=== PATIENT | female | born 1940 | race Caucasian/White ===

== ENCOUNTER 2020-10-01 20:48 | Emergency (ER) | payer OTHER ==
[~2020-10-01] VITALS: Ht 167.6 cm; Wt 63.5 kg
[2020-10-01 21:01] VITALS: BP_SYST 205
[2020-10-01] MEDS ORDERED: NACL 0.9% 1,000 ML IV ONE (22:15)
[2020-10-01 22:29] LABS: BILIRUBIN,URINE NEGATIVE (NEGATIVE); BLOOD, URINE NEGATIVE (NEGATIVE); GLUCOSE,URINE NEGATIVE (NEGATIVE); KETONES,URINE NEGATIVE (NEGATIVE); LEUKOCYTE ESTERASE ,URINE 2+ (NEGATIVE); NITRITE, URINE NEGATIVE (NEGATIVE); PH,URINE 7.5 (5.0-8.0); PROTEIN URINE NEGATIVE (NEGATIVE); UROBILINOGEN,URINE 0.2 (0.2-1.0)
[2020-10-01] MEDS ORDERED: ENALAPRILAT DIHYDRATE 1.25 MG/ML VIAL IVP ONE (22:30)
[2020-10-01 22:36] LABS: CLARITY/URINE CLEAR (CLEAR); COLOR,URINE STRAW (YELLOW)
[2020-10-01 22:40] LABS: BACTERIA,URINE FEW /HPF (None Seen); MUCUS,URINE None Seen /LPF (None Seen); RBC,URINE 0-3 /HPF (0-3)
[2020-10-01 22:44] LABS: BASOPHILS % (AUTO) 0.6 % (0.0-2.0); EOSINOPHILS # (AUTO) 0.1 K/uL (0.0-0.4); EOSINOPHILS % (AUTO) 1.4 % (0.0-4.0); HEMATOCRIT 38.8 % (36-48); HEMOGLOBIN 13.3 g/dL (12.0-16.0); LYMPHOCYTES # (AUTO) 1.1 K/uL (1.0-5.5); LYMPHOCYTES % (AUTO) 14.9 % (20.5-51.5); MEAN CORPUSCULAR HEMOGLOBIN 34 pg (27-31); MEAN CORPUSCULAR HGB CONC 34 % (32-36); MEAN CORPUSCULAR VOLUME 99 fL (79.0-98.0); MONOCYTES # (AUTO) 0.5 K/uL (0.0-1.0); MONOCYTES % (AUTO) 6.4 % (1.7-9.3); NEUTROPHILS # (AUTO) 5.8 K/uL (1.8-7.7); NEUTROPHILS % (AUTO) 76.7 % (40.0-70.0); PLATELET COUNT (AUTO) 218 K/uL (130-430); RED BLOOD CELL COUNT(AUTO) 3.92 MIL/uL (4.2-6.2); RED CELL DISTRIBUTION WIDTH 13.2 % (9.0-15.0); WHITE BLOOD COUNT (AUTO) 7.6 K/uL (4.8-10.8)
[2020-10-01 22:48] LABS: ANION GAP 12 (5-15); CALCIUM 9.6 mg/dL (8.4-11.0); CHLORIDE 105 mmol/L (98-107); CREATININE 1.02 mg/dL (0.55-1.30); GLUCOSE 124 mg/dL (70-99); POTASSIUM 3.8 mmol/L (3.5-5.1); SODIUM SERUM 141 mmol/L (136-145); UREA NITROGEN, BLOOD 11 mg/dL (8-21)
[2020-10-01 22:54] LABS: ALANINE AMINOTRANSFERASE 31 U/L (12-78); ASPARTATE AMINOTRANSFERASE 21 U/L (10-37); TOTAL BILIRUBIN 0.7 mg/dL (0.0-1.0)
[2020-10-01] MEDS ORDERED: CIPR500T5 PO ×2 (23:14→23:36)
[2020-10-01] MEDS ORDERED: MECL-103 PO ×2 (23:14→23:36)
[2020-10-01 23:26] VITALS: BP_SYST 179
== END 2020-10-01 23:26 | disposition home or self-care (01) ==
LOC: SED 20:48
DX: I10 Essential (primary) hypertension (principal); N39.0 Urinary tract infection, site not specified
CPT/HCPCS: 36415; 70450-TC; 76376; 80053; 81000; 85025; 87086; 96374; 99284

== ENCOUNTER 2021-07-11 08:44 | Emergency (ER) | payer OTHER ==
[~2021-07-11] VITALS: Ht 167.6 cm; Wt 61.2 kg
[~2021-07-11 08:44] MED LIST: CIPR500T5 PO; MECL-103 PO
[2021-07-11 08:55] VITALS: BP_SYST 151
--- NOTE | 2021-07-11 09:05 | NUR ---
PT TRIAGED. MD AT BEDSIDE
[2021-07-11] MEDS ORDERED: MECLIZINE HCL 25 MG TABLET (ANITVERT) PO ONE (09:15)
[2021-07-11] MEDS ORDERED: NACL 0.9% 1,000 ML IV ONE (09:15)
--- NOTE | 2021-07-11 10:08 | NUR ---
PIV PLACED BLOOD AND URINE TO LAB, AMBULATED WITH STEADY GAIT TO BR WITH ASST
[2021-07-11 10:18] LABS: BILIRUBIN,URINE NEGATIVE (NEGATIVE); BLOOD, URINE NEGATIVE (NEGATIVE); CLARITY/URINE CLEAR (CLEAR); COLOR,URINE YELLOW (YELLOW); GLUCOSE,URINE NEGATIVE (NEGATIVE); KETONES,URINE NEGATIVE (NEGATIVE); LEUKOCYTE ESTERASE ,URINE TRACE (NEGATIVE); NITRITE, URINE NEGATIVE (NEGATIVE); PROTEIN URINE NEGATIVE (NEGATIVE); UROBILINOGEN,URINE 0.2 (0.2-1.0)
[2021-07-11 10:20] LABS: BASOPHILS % (AUTO) 0.5 % (0.0-2.0); EOSINOPHILS % (AUTO) 0.3 % (0.0-4.0); HEMATOCRIT 42.8 % (36-48); HEMOGLOBIN 14.2 g/dL (12.0-16.0); LYMPHOCYTES # (AUTO) 0.9 K/uL (1.0-5.5); MEAN CORPUSCULAR HEMOGLOBIN 31 pg (27-31); MEAN CORPUSCULAR HGB CONC 33 % (32-36); MEAN CORPUSCULAR VOLUME 93 fL (79.0-98.0); MONOCYTES # (AUTO) 0.3 K/uL (0.0-1.0); MONOCYTES % (AUTO) 4.1 % (1.7-9.3); NEUTROPHILS # (AUTO) 5.9 K/uL (1.8-7.7); NEUTROPHILS % (AUTO) 82.1 % (40.0-70.0); PLATELET COUNT (AUTO) 302 K/uL (130-430); RED BLOOD CELL COUNT(AUTO) 4.59 MIL/uL (4.2-6.2); RED CELL DISTRIBUTION WIDTH 13.1 % (9.0-15.0); WHITE BLOOD COUNT (AUTO) 7.2 K/uL (4.8-10.8)
[2021-07-11 10:36] LABS: BACTERIA,URINE RARE /HPF (None Seen); MUCUS,URINE 1+ /LPF (None Seen); RBC,URINE 0-3 /HPF (0-3); WBC,URINE 0-3 /HPF (0-3)
[2021-07-11 10:37] LABS: ANION GAP 10 (5-15); CHLORIDE 101 mmol/L (98-107); CREATININE 0.81 mg/dL (0.55-1.30); GLUCOSE 118 mg/dL (70-99); SODIUM SERUM 137 mmol/L (136-145); UREA NITROGEN, BLOOD 14 mg/dL (8-21)
[2021-07-11 10:51] LABS: ALANINE AMINOTRANSFERASE 21 U/L (12-78); ALBUMIN 4.2 g/dL (3.4-4.8); ASPARTATE AMINOTRANSFERASE 14 U/L (10-37); TOTAL BILIRUBIN 0.2 mg/dL (0.0-1.0)
--- NOTE | 2021-07-11 11:01 | NUR ---
AMBULATED PATIENT WITHOUT ASST WITHOUT COMPLAINTS
[2021-07-11] MEDS ORDERED: KETOROLAC TROMETHAMINE 30 MG VIAL IVP ONE (11:30)
--- NOTE | 2021-07-11 11:34 | NUR ---
MEDICATED FOR PAIN TO CT SCAN
[2021-07-11] MEDS ORDERED: MAGNESIUM CITRATE 300 ML ORAL SOLUTION PO ONE (13:00)
[2021-07-11] MEDS ORDERED: BISACODYL 10 MG/SUPPOSITORY RC ONE (13:00)
[2021-07-11] MEDS ORDERED: BISA10SU61 RC (13:22)
[2021-07-11] MEDS ORDERED: POLY17PO4 PO (13:22)
[2021-07-11] MEDS ORDERED: DOCU-144 PO (13:22)
[2021-07-11] MEDS ORDERED: MINERAL OIL 133 ML ENEMA RC ONE (14:00)
[2021-07-11 14:26] VITALS: BP_SYST 139
--- NOTE | 2021-07-11 14:27 | NUR ---
Patient given written and verbal discharge instructions and verbalizes understanding. KIM PARDO MD discussed with patient the results and treatment provided. Patient in stable condition. ID arm band removed. IV catheter removed intact and dressing applied, no active bleeding. Rx of DUCOLAX, MIRALAX given. Patient educated on pain management and to follow up with PMD. Pain Scale 0. Opportunity for questions provided and answered. Medication side effect fact sheet provided.
== END 2021-07-11 14:27 | disposition home or self-care (01) ==
LOC: SED 08:44
DX: R10.2 Pelvic and perineal pain (principal); R35.0 Frequency of micturition; I10 Essential (primary) hypertension; Z79.899 Other long term (current) drug therapy
CPT/HCPCS: 36415; 74176; 76376; 80053; 81000; 83605; 85025; 87040; 87086; 96361; 96374; 99284; J1885; J7030; J8597

== ENCOUNTER 2021-07-24 20:08 | Inpatient (IN) | payer OTHER, SELFPAY ==
[~2021-07-24] VITALS: Ht 160 cm; Wt 61.2 kg
[~2021-07-24 20:08] MED LIST changes: +BISA10SU61 RC; +DOCU-144 PO; +POLY17PO4 PO
[2021-07-24 20:20] VITALS: BP_SYST 141
--- NOTE | 2021-07-24 20:20 | NUR ---
Patient to ER bed 2 for evaluation. Side rails up. Report given to RONY Luo.
--- NOTE | 2021-07-24 20:25 | NUR ---
PATIENT VERBALIZED COMING IN FOR ABDOMINAL PAIN, DIARRHEA. PATIENT STATED TWO WEEKS AGO SHE WAS HERE FOR CONSTIPATION AND SHE HAS HISTORY OF DIVERTICULITIS. DR PARDO INFORMED. DR PARDO VERBALIZED UNDERSTANDING.
[2021-07-24] MEDS ORDERED: MAG HYDROX/AL HYDROX/SIMETH 30 ML, DICYCLOMINE HCL 20 MG, LIDOCAINE VISCOUS 2% 15ML (PO... PO ONE ×3 (21:30)
[2021-07-24] MEDS ORDERED: NACL 0.9% 1,000 ML IV ONE (21:30)
[2021-07-24] MEDS ORDERED: ONDANSETRON HCL 4 MG/2 ML VIAL IVP ONE ×2 (21:30→21:45)
[2021-07-24 22:05] LABS: BASOPHILS % (AUTO) 0.2 % (0.0-2.0); EOSINOPHILS # (AUTO) 0.1 K/uL (0.0-0.4); EOSINOPHILS % (AUTO) 0.5 % (0.0-4.0); HEMATOCRIT 38.8 % (36-48); HEMOGLOBIN 13.3 g/dL (12.0-16.0); LYMPHOCYTES # (AUTO) 0.5 K/uL (1.0-5.5); LYMPHOCYTES % (AUTO) 4.7 % (20.5-51.5); MEAN CORPUSCULAR HEMOGLOBIN 31 pg (27-31); MEAN CORPUSCULAR HGB CONC 34 % (32-36); MEAN CORPUSCULAR VOLUME 91 fL (79.0-98.0); MONOCYTES # (AUTO) 0.6 K/uL (0.0-1.0); MONOCYTES % (AUTO) 5.7 % (1.7-9.3); NEUTROPHILS # (AUTO) 9.5 K/uL (1.8-7.7); NEUTROPHILS % (AUTO) 88.9 % (40.0-70.0); PLATELET COUNT (AUTO) 250 K/uL (130-430); RED BLOOD CELL COUNT(AUTO) 4.25 MIL/uL (4.2-6.2); WHITE BLOOD COUNT (AUTO) 10.7 K/uL (4.8-10.8)
[2021-07-24 22:24] LABS: ANION GAP 10 (5-15); CALCIUM 9.1 mg/dL (8.4-11.0); CHLORIDE 100 mmol/L (98-107); CREATININE 0.99 mg/dL (0.55-1.30); GLUCOSE 172 mg/dL (70-99); POTASSIUM 3.6 mmol/L (3.5-5.1); SODIUM SERUM 133 mmol/L (136-145); UREA NITROGEN, BLOOD 18 mg/dL (8-21)
[2021-07-24 22:28] LABS: ALANINE AMINOTRANSFERASE 22 U/L (12-78); ALBUMIN 3.8 g/dL (3.4-4.8); ASPARTATE AMINOTRANSFERASE 17 U/L (10-37); LIPASE 238 U/L (73-393); TOTAL BILIRUBIN 0.2 mg/dL (0.0-1.0)
--- NOTE | 2021-07-24 22:40 | NUR ---
PATIENT REFUSING ALL MEDICATION AND IV LINE. PATIENT STATES SHE DOES NOT WANT TO BE " DOPED UP". PATIENT EDUCATED ON MEDICATION AND SIDE EFFECTS. PATIENT STILL REFUSING. MD NOTIFIED
--- NOTE | 2021-07-25 00:26 | NUR ---
Assumed care of patient at this time. (Assignment changed.)
[2021-07-25 01:08] LABS: BILIRUBIN,URINE NEGATIVE (NEGATIVE); CLARITY/URINE CLEAR (CLEAR); COLOR,URINE YELLOW (YELLOW); GLUCOSE,URINE NEGATIVE (NEGATIVE); KETONES,URINE NEGATIVE (NEGATIVE); LEUKOCYTE ESTERASE ,URINE 2+ (NEGATIVE); NITRITE, URINE NEGATIVE (NEGATIVE); PROTEIN URINE NEGATIVE (NEGATIVE); UROBILINOGEN,URINE 0.2 (0.2-1.0)
[2021-07-25 01:20] LABS: BLOOD, URINE TRACE (NEGATIVE)
[2021-07-25] MEDS ORDERED: NACL 0.9% 1,000 ML IV ONE (01:30)
--- NOTE | 2021-07-25 01:44 | NUR ---
Covid nasal swab sent to lab at this time.
[2021-07-25] MEDS ORDERED: cefTRIAXone 1 GM IVPB PREMIX 50 ML IV ONE (02:00)
[2021-07-25 02:02] LABS: BACTERIA,URINE None Seen /HPF (None Seen)
[2021-07-25 02:03] LABS: MUCUS,URINE None Seen /LPF (None Seen); TRICHOMONAS,URINE None Seen /HPF (None Seen); YEAST,URINE Few /HPF (None Seen)
[2021-07-25] MEDS ORDERED: ONDANSETRON HCL 4 MG/2 ML VIAL IVP PRN (02:30)
[2021-07-25] MEDS ORDERED: ALBUTEROL SULFATE 0.083% 2.5 MG/3 ML VIAL.NEB INH PRN (02:30)
--- NOTE | 2021-07-25 02:50 | NUR ---
Report given back to RONY Luo.
--- NOTE | 2021-07-25 02:55 | NUR ---
Admit bed requested Patient will be admitted to care of Admitted to Telemetry unit. Diagnosis Chest pain, Abdominal pain Inpatient (Yes or No) yes Observation (Yes or No) no Orientation concerns or request close to nursing station (Yes or No) yes Covid Status pending On vent or bipap no Isolation requirements no Needs a sitter no From Home (Yes or if No enter name of facility) yes Requires Dialysis (Yes or No) no Med Rec Completed (Yes of No) yes
--- NOTE | 2021-07-25 03:03 | NUR ---
Assumed care of patient at this time. (Assignment changed.) Report received from Luke URIBE.
--- NOTE | 2021-07-25 04:03 | NUR ---
Report given to Tele Nurse Gorge URIBE. Tele Nurse Gorge URIBE verbalized understanding, no further questions. Patient resting quietly. No acute distress noted. Vital signs within normal range. Bed in low and locked position, call light within reach of patient. Patient A/Ox4, skin intact, IV patent and infusing NS, no s/s of distress or c/o pain.
[2021-07-25 04:05] VITALS: BP_SYST 137
--- NOTE | 2021-07-25 04:10 | NUR ---
RECEIVED BEDSIDE REPORT. PT AOX4 ABLE TO MAKE NEEDS KNOWN. RR EVEN AND UNLABORED ON RA. PULSES PRESENT. PT ABLE TO AMBULATE WITH ASSIST. PT CO ABD DISCOMFORT. PT EDUCATED TO USE CALL LIGHT IF SHE NEEDS TO USE RESTROOM. BED ALARM ON. CALL LIGHT WITHIN REACH. HOB ELEVATED. WILL CONTINUE TO MONITOR.
[2021-07-25 04:19] VITALS: BP_SYST 140
--- NOTE | 2021-07-25 04:42 | NUR ---
CONSULTATION PAGED/CALLED Reason for Consultation: CHEST PAIN Person Who was Notified: ROSY Consulting Physician: PETE Hole Puncher Strap Specialty: Ordering Physician: LIZBETH
--- NOTE | 2021-07-25 06:40 | NUR ---
PT C/O 10/10 LEG PAIN THAT IS RADIATING UP THE R LEG IN THE GROIN AREA/ABD AREA. MD WILL BE PAGED
--- NOTE | 2021-07-25 06:48 | NUR ---
ATTENDING MD DR CHA WAS CALLED, RE: SEVERE LEG PAIN. SPOKE TO CELINA.
--- NOTE | 2021-07-25 07:05 | NUR ---
RECEIVED ORDER FOR ONE TIME DOSE OF MORPHINE FOR PT 02/09. PT STATED SHE DID NOT WANT THE MEDICATION RIGHT NOW. ENDORSED CARE TO DAY RN
[2021-07-25] MEDS ORDERED: NALOXONE HCL 0.4 MG/ML AMP (NARCAN) IVP PRN (07:15)
--- NOTE | 2021-07-25 07:15 | NUR ---
OPENING NOTE: REPORT RC'VD FROM OUTGOING NOC RN, PATIENT IN NO ACUTE DISTRESS AND OR DISCOMFORT. BED LOW AND LOCKED FOR SAFETY.
[2021-07-25 07:21] LABS: BASOPHILS % (AUTO) 0.3 % (0.0-2.0); EOSINOPHILS % (AUTO) 0.6 % (0.0-4.0); HEMATOCRIT 38.5 % (36-48); HEMOGLOBIN 13.1 g/dL (12.0-16.0); LYMPHOCYTES # (AUTO) 0.9 K/uL (1.0-5.5); LYMPHOCYTES % (AUTO) 13.3 % (20.5-51.5); MEAN CORPUSCULAR HEMOGLOBIN 31 pg (27-31); MEAN CORPUSCULAR HGB CONC 34 % (32-36); MEAN CORPUSCULAR VOLUME 91 fL (79.0-98.0); MONOCYTES # (AUTO) 0.4 K/uL (0.0-1.0); MONOCYTES % (AUTO) 6.4 % (1.7-9.3); NEUTROPHILS # (AUTO) 5.4 K/uL (1.8-7.7); NEUTROPHILS % (AUTO) 79.4 % (40.0-70.0); PLATELET COUNT (AUTO) 255 K/uL (130-430); RED BLOOD CELL COUNT(AUTO) 4.26 MIL/uL (4.2-6.2); RED CELL DISTRIBUTION WIDTH 13.1 % (9.0-15.0); WHITE BLOOD COUNT (AUTO) 6.7 K/uL (4.8-10.8)
[2021-07-25 07:47] LABS: ALANINE AMINOTRANSFERASE 20 U/L (12-78); ALBUMIN 3.7 g/dL (3.4-4.8); ANION GAP 13 (5-15); ASPARTATE AMINOTRANSFERASE 15 U/L (10-37); CHLORIDE 105 mmol/L (98-107); GLUCOSE 113 mg/dL (70-99); POTASSIUM 3.1 mmol/L (3.5-5.1); SODIUM SERUM 137 mmol/L (136-145); TOTAL BILIRUBIN 0.2 mg/dL (0.0-1.0); UREA NITROGEN, BLOOD 12 mg/dL (8-21)
--- NOTE | 2021-07-25 07:55 | NUR ---
DR. TRIPP MAKING ROUNDS, TO REVIEW CHART AND PLACE ORDERS.
[2021-07-25 08:00] VITALS: BP_SYST 138
[2021-07-25] MEDS ORDERED: MORPHINE 2 MG/ML INJ. SYRINGE IVP ONE (08:00)
--- NOTE | 2021-07-25 08:19 | NUR ---
DR. TRIPP MADE AWARE OF K+ RESULT WILL PLACE ORDER FOR REPLACEMENT.
[2021-07-25] MEDS: LOSARTAN POTASSIUM 50 MG TABLET (COZAAR) PO SCH (08:26)
[2021-07-25] MEDS: amLODIPine BESYLATE 5 MG TABLET PO SCH (08:27)
--- NOTE | 2021-07-25 08:27 | NUR ---
DR. TORO MAKING ROUNDS, VERBAL BEDSIDE REPORT GIVEN.
--- NOTE | 2021-07-25 08:28 | NUR ---
MANAGER BASKETBALL AT BEDSIDE COMPLETING EXAM.
[2021-07-25] MEDS ORDERED: VALSARTAN 160 MG TABLET (DIOVAN) PO SCH ×2 (09:00)
--- NOTE | 2021-07-25 09:06 | NUR ---
MORPHINE GIVEN FOR PAIN 11/09
--- NOTE | 2021-07-25 11:07 | NUR ---
NEW 20G PIV PLACED TO LEFT AC, FLASH NOTED WITH GOOD BLOOD RETURN AND FLUSHES WELL.
[2021-07-25 12:00] VITALS: BP_SYST 131
[2021-07-25 16:00] VITALS: BP_SYST 129
[2021-07-26 00:11] VITALS: BP_SYST 132
--- NOTE | 2021-07-26 07:54 | NUR ---
OPENING NOTES: PATIENT RESTING IN BED. BREATHING EVEN AND NON LABORED TO ROOM AIR. FALL, SAFETY AND ASPIRATION MEASURES REINFORCED. CALL LIGHT WITHIN REACH.
[2021-07-26] MEDS: amLODIPine BESYLATE 5 MG TABLET PO SCH (08:11)
[2021-07-26] MEDS: LOSARTAN POTASSIUM 50 MG TABLET (COZAAR) PO SCH (08:12)
[2021-07-26] MEDS: ACETAMINOPHEN 325 MG TABLET PO PRN ×2 (08:13→21:24)
[2021-07-26 08:15] VITALS: BP_SYST 127
[2021-07-26 11:31] VITALS: BP_SYST 116
--- NOTE | 2021-07-26 13:00 | NUR ---
RN NOTES: PATIENT RESTING IN BED. NO S/S OF ACUTE DISTRESS NOTED. DR. MUHAMMAD MADE ROUNDS.
[2021-07-26] MEDS ORDERED: PANTOPRAZOLE SODIUM 40 MG TAB PO ONE (13:15)
[2021-07-26 15:32] VITALS: BP_SYST 117
--- NOTE | 2021-07-26 17:45 | NUR ---
RN NOTES: ASSISTED PATIENT TO BEDSIDE COMMODE. NO S/S OF ACUTE DISTRESS NOTED. CALL LIGHT WITHIN REACH.
--- NOTE | 2021-07-26 18:04 | NUR ---
CONSULTATION PAGED/CALLED Reason for Consultation: [] DIVERTICULOSIS, HEPATIC CYST, ABD PAIN Person Who was Notified: [] OSWALD Consulting Physician: [] DR Dalton DUMONT Analytical Data Scientist Specialty: [] GI Ordering Physician: [] DR Anita MUHAMMAD/DR TORO
--- NOTE | 2021-07-26 18:39 | NUR ---
CLOSING NOTES: PATIENT EATING DINNER. HOB ELEVATED. NO S/S OF ACUTE DISTRESS NOTED. BED LOCKED, ALARM ON AND IN LOWEST POSITION. FALL, SAFETY AND ASPIRATION MEASURES PROVIDED. CALL LIGHT WITHIN REACH. WILL CONTINUE MONITOR UNTIL ENDORSE TO MESSENGER OFFICE RN.
[2021-07-27 00:46] VITALS: BP_SYST 119
--- NOTE | 2021-07-27 07:19 | NUR ---
CLOSING NOTE PT IS IN BED, NO APPARENT DISTRESS NOTED AT THIS TIME. BED IS LOWEST POSITION WITH FALL AND SAFETY PRECAUTIONS IN PLACE. CALL LIGHT IS IN REACH
--- NOTE | 2021-07-27 08:00 | NUR ---
OPENING NOTES: PATIENT EATING BREAKFAST. HOB ELEVATED. BREATHING EVEN AND NON LABORED TO RA. BED LOCKED, ALARM ON AND IN LOWEST POSITION. FALL, SAFETY AND ASPIRATION MEASURES REINFORCED. CALL LIGHT WITHIN REACH
[2021-07-27 08:13] VITALS: BP_SYST 132
[2021-07-27] MEDS: amLODIPine BESYLATE 5 MG TABLET PO SCH (08:26)
[2021-07-27] MEDS: LOSARTAN POTASSIUM 50 MG TABLET (COZAAR) PO SCH (08:27)
[2021-07-27] MEDS: ACETAMINOPHEN 325 MG TABLET PO PRN (08:39)
[2021-07-27] MEDS ORDERED: PANTOPRAZOLE SODIUM 40 MG TAB PO SCH (09:00)
[2021-07-27 11:32] VITALS: BP_SYST 127
--- NOTE | 2021-07-27 13:00 | NUR ---
RN NOTES: DR. MUHAMMAD MADE ROUNDS AND TALKED TO THE PATIENT REGARDING DISCHARGE ORDER.
[2021-07-27] MEDS ORDERED: CEPH250C PO (13:02)
[2021-07-27] MEDS ORDERED: PSYL0.4C2 PO (13:02)
[2021-07-27] MEDS ORDERED: OMEP20CA15 PO (13:02)
[2021-07-27] MEDS ORDERED: ALPR0.5T PO (13:02)
[2021-07-27] MEDS ORDERED: NEU100 PO (13:06)
[2021-07-27 13:44] VITALS: BP_SYST 128
--- NOTE | 2021-07-27 14:50 | NUR ---
D/C Patient Patient given medication reconciliation form and D/C instructions. Exit Care provided. Patient verbalized understanding. MD discussed with patient the results and treatment provided. Ambulatory with steady gait for discharge to home. Patient in stable condition, ID band removed. IV catheter removed, intact and dressing applied, no active bleeding. Rx given and E script sent to preferred pharmacy. Patient educated on pain management. All belongings sent with patient.
== END 2021-07-27 14:50 | disposition home or self-care (01) | DRG 313 ==
LOC: SED 20:08 → STU 07-25 02:26
PROVIDERS: ADMIT Internal Medicine Hospice and Palliative Medicine; ATTEND Internal Medicine Hospice and Palliative Medicine
DX: R07.89 Other chest pain (principal); N39.0 Urinary tract infection, site not specified; I10 Essential (primary) hypertension; R19.7 Diarrhea, unspecified; K57.30 Diverticulosis of large intestine without perforation or abscess without bleeding; F41.9 Anxiety disorder, unspecified; K76.89 Other specified diseases of liver; K21.9 Gastro-esophageal reflux disease without esophagitis; R10.9 Unspecified abdominal pain; Z20.822 Contact with and (suspected) exposure to COVID-19; Z86.16 Personal history of COVID-19; Z79.2 Long term (current) use of antibiotics; Z79.899 Other long term (current) drug therapy; Z90.710 Acquired absence of both cervix and uterus
CPT/HCPCS: 36415; 71045; 76376; 80053; 81000; 83605; 83690; 84484; 85025; 93005; 93306; 96374; 99285; G0378; J0696; J2001; J2270; J2405; J7060